=== PATIENT | female | born 1980 | race Caucasian/White ===

== ENCOUNTER 2017-10-22 23:51 | Inpatient (IN) | payer OTHER ==
[2017-10-23] MEDS: SOD CHLORIDE 0.9% 1,000 ML IV ×4 (00:13→23:43)
[2017-10-23] MEDS: ONDANSETRON 4 MG INJ IV (00:15)
[2017-10-23] MEDS: HYDROmorphONE 1 MG/ML SYG IV (00:15)
[2017-10-23] MEDS: AMPICILLIN/SULB 3 GM/NS (PMX) 100 ML IVPB (00:20)
[2017-10-23] MEDS: LORAZEPAM 2 MG INJ IV ×2 (00:21→01:04)
[2017-10-23] MEDS: LIDOCAINE 1%/EPI (MDV) 50 ML INJ INJ (00:30)
[2017-10-23] MEDS: FENTAnyl 50 MCG/ML VIAL IV ×2 (01:05→15:01)
[2017-10-23 05:33] LABS: ADD MAN DIFF? NO
[2017-10-23 05:36] LABS: BASOPHILS % 0.2 % (0.0-2.0); EOSINOPHILS % 0.2 % (0.0-7.0); HEMATOCRIT 37.3 % (37.0-47.0); HEMOGLOBIN 11.9 g/dl (12.0-16.0); LYMPHOCYTES % 14.1 % (15.0-51.0); MEAN CORPUSCULAR HEMOGLOBIN 26.4 pg (29.0-33.0); MEAN CORPUSCULAR HGB CONC 31.9 g/dl (32.0-37.0); MEAN CORPUSCULAR VOLUME 82.9 fl (82.0-101.0); MEAN PLATELET VOLUME 10.4 fl (7.4-10.4); MONOCYTE # 1.4 10^3/ul (0.3-0.9); MONOCYTES % 10.2 % (0.0-11.0); NEUTROPHIL # 10.6 10^3/ul (1.6-7.5); PLATELET COUNT 284 10^3/UL (140-415)
[2017-10-23 05:36] LABS: WHITE BLOOD COUNT 14.1 10^3/ul (4.8-10.8)
[2017-10-23 06:12] LABS: ANION GAP 11 (8-16); BLOOD UREA NITROGEN 9 mg/dl (7-20); CALCIUM 8.2 mg/dl (8.4-10.2); CARBON DIOXIDE 23 mmol/L (21-31); CHLORIDE 107 mmol/L (97-110); GLUCOSE 103 mg/dl (70-220); POTASSIUM 3.8 mmol/L (3.5-5.1); SODIUM 137 mmol/L (135-144)
[2017-10-23] MEDS ORDERED: NACL 0.9% 3 ML SYG IV ×2 (06:30→14:30)
[2017-10-23] MEDS ORDERED: ACETAMINOPHEN 325 MG TAB PO (06:30)
[2017-10-23] MEDS ORDERED: ALBUTEROL/IPRATROPIUM (NEB) 3 ML AMP HHN (06:30)
[2017-10-23] MEDS ORDERED: ONDANSETRON 4 MG INJ IV ×2 (06:30→13:30)
[2017-10-23] MEDS ORDERED: HYDROCODONE/APAP (5/325) TAB PO ×2 (06:30→14:30)
[2017-10-23] MEDS: DEXTROSE 5%-0.45% NACL 1,000 ML IV (07:06)
[2017-10-23] MEDS: VANCOMYCIN 1.75 GM in SOD CHLORIDE 0.9% 500 ML IVPB (08:01)
[2017-10-23] MEDS ORDERED: CEFEPIME 1GM/50 ML (PMX) 50 ML IVPB (09:00)
[2017-10-23] MEDS ORDERED: VANCOMYCIN IV PER PHARMACY XX (09:00)
[2017-10-23] MEDS ORDERED: HEPARIN 5,000 UNIT/0.5 ML VIAL SC (09:00)
[2017-10-23] MEDS: HYDROCODONE/APAP (5/325) TAB PO (10:45)
[2017-10-23] MEDS ORDERED: HYDROmorphONE 1 MG/ML SYG IV (11:00)
[2017-10-23] MEDS ORDERED: SUCCINYLCHOLINE CHLORIDE 100 MG/5 ML SYG IV (13:00)
[2017-10-23] MEDS ORDERED: DEXAMETHASONE 4 MG/ML 1 ML INJ (13:00)
[2017-10-23] MEDS ORDERED: ONDANSETRON 4 MG INJ (13:00)
[2017-10-23] MEDS: POLYMYXIN B 500000 UNIT INJ (13:15)
[2017-10-23] MEDS: BACITRACIN 50000 UNITS INJ (13:15)
[2017-10-23] MEDS ORDERED: ROCURONIUM 50 MG INJ (13:16)
[2017-10-23] MEDS ORDERED: LIDOCAINE 2% (SDV) 5 ML INJ (13:16)
[2017-10-23] MEDS ORDERED: GLYCOPYRROLATE 0.4 MG INJ (13:16)
[2017-10-23] MEDS ORDERED: NEOSTIGMINE 3 MG/3 ML SYRINGE (13:16)
[2017-10-23] MEDS ORDERED: FENTAnyl 50 MCG/ML VIAL (13:16)
[2017-10-23] MEDS ORDERED: PROPOFOL 20 ML (13:16)
[2017-10-23] MEDS ORDERED: MIDAZOLAM 1 MG/ML 2 ML INJ (13:17)
[2017-10-23] MEDS ORDERED: LABETALOL HCL 20MG INJ IV (13:30)
[2017-10-23] MEDS ORDERED: MEPERIDINE 25 MG INJ IV (13:30)
[2017-10-23] MEDS ORDERED: FENTAnyl 50 MCG/ML VIAL IV (13:30)
[2017-10-23] MEDS ORDERED: OXYCODONE/ACETAMINOPHEN (5/325) TAB PO ×2 (13:30)
[2017-10-23] MEDS ORDERED: MIDAZOLAM 1 MG/ML 2 ML INJ IV (13:30)
[2017-10-23] MEDS ORDERED: ATROPINE 1 MG/10 ML SYRINGE IV (13:30)
[2017-10-23] MEDS ORDERED: HYDROmorphONE 1 MG/5 ML IV SYRINGE IV ×2 (13:30)
[2017-10-23] MEDS ORDERED: EPHEDrine SULFATE 50 MG/5 ML SYG IV (13:30)
[2017-10-23] MEDS ORDERED: morphine (1 MG/ML) 10ML SYRINGE IV ×3 (13:30)
[2017-10-23] MEDS ORDERED: DIPHENHYDRAMINE 50 MG INJ IV (13:30)
[2017-10-23] MEDS ORDERED: hydrALAzine 20 MG INJ IV (13:30)
[2017-10-23] MEDS ORDERED: morphine 2 MG INJ IV (14:30)
[2017-10-23] MEDS ORDERED: CEFAZOLIN 1 GM/50 ML (PMX) 50 ML IVPB (14:30)
[2017-10-23] MEDS: HYDROmorphONE 1 MG/5 ML IV SYRINGE IV (15:02)
[2017-10-23] MEDS ORDERED: ACETAMINOPHEN 1000MG/100ML IV 100 ML IVPB ×2 (16:00→17:00)
[2017-10-23] MEDS: VANCOMYCIN 1 GM 250 ML IVPB ×2 (16:59→23:49)
[2017-10-23] MEDS: ACETAMINOPHEN 1000MG/100ML IV 100 ML IVPB ×2 (18:57→23:48)
[2017-10-23] MEDS: AMPICILLIN/SULB 1.5GM/NS (PMX) 50 ML IVPB ×2 (19:31→23:41)
[2017-10-24] MEDS: ACETAMINOPHEN 1000MG/100ML IV 100 ML IVPB ×3 (06:00→18:09)
[2017-10-24] MEDS: AMPICILLIN/SULB 1.5GM/NS (PMX) 50 ML IVPB ×3 (06:01→18:10)
[2017-10-24] MEDS: HYDROmorphONE 2 MG/ML SYG IV ×4 (06:43→21:39)
[2017-10-24 07:44] LABS: ADD MAN DIFF? NO
[2017-10-24 07:55] LABS: ABNORMAL IP MESSAGE 1; BASOPHILS % 0.2 % (0.0-2.0); HEMATOCRIT 34.6 % (37.0-47.0); HEMOGLOBIN 11.2 g/dl (12.0-16.0); LYMPHOCYTES # 1.5 10^3/ul (0.8-2.9); LYMPHOCYTES % 8.3 % (15.0-51.0); MEAN CORPUSCULAR HEMOGLOBIN 26.4 pg (29.0-33.0); MEAN CORPUSCULAR HGB CONC 32.4 g/dl (32.0-37.0); MEAN CORPUSCULAR VOLUME 81.4 fl (82.0-101.0); MONOCYTE # 1.8 10^3/ul (0.3-0.9); MONOCYTES % 9.8 % (0.0-11.0); NEUTROPHIL # 14.4 10^3/ul (1.6-7.5); NEUTROPHILS % 81.1 % (39.0-77.0); PLATELET COUNT 330 10^3/UL (140-415); RED BLOOD COUNT 4.25 10^6/ul (4.20-5.40); RED CELL DISTRIBUTION WIDTH 14.3 % (11.5-14.5)
[2017-10-24 07:55] LABS: WHITE BLOOD COUNT 17.8 10^3/ul (4.8-10.8)
[2017-10-24 08:01] LABS: POSITIVE DIFF @See below
[2017-10-24 08:06] LABS: ALANINE AMINOTRANSFERASE 20 IU/L (13-69); ALBUMIN 3.1 g/dl (3.3-4.9); ALBUMIN/GLOBULIN RATIO 1.06; ALKALINE PHOSPHATASE 60 IU/L (42-121); ANION GAP 9 (8-16); ASPARTATE AMINO TRANSFERASE 32 IU/L (15-46); BILIRUBIN,INDIRECT 0.1 mg/dl (0-1.1); BILIRUBIN,TOTAL 0.1 mg/dl (0.2-1.3); BLOOD UREA NITROGEN 11 mg/dl (7-20); CALCIUM 8.2 mg/dl (8.4-10.2); CARBON DIOXIDE 25 mmol/L (21-31); CHLORIDE 105 mmol/L (97-110); CREATININE 0.72 mg/dl (0.44-1.00); GLUCOSE 119 mg/dl (70-220); MAGNESIUM 1.8 mg/dl (1.7-2.5); PHOSPHORUS 3.3 mg/dl (2.5-4.9); SODIUM 135 mmol/L (135-144)
[2017-10-24] MEDS: SOD CHLORIDE 0.9% 1,000 ML IV ×3 (09:19→23:36)
[2017-10-24] MEDS: VANCOMYCIN 1 GM 250 ML IVPB (09:19)
[2017-10-24] MEDS: VANCOMYCIN 1.5 GM in SOD CHLORIDE 0.9% 250 ML IVPB ×2 (15:29→23:07)
[2017-10-25] MEDS: ACETAMINOPHEN 1000MG/100ML IV 100 ML IVPB ×2 (00:14→05:20)
[2017-10-25] MEDS: AMPICILLIN/SULB 1.5GM/NS (PMX) 50 ML IVPB ×2 (00:35→05:56)
[2017-10-25] MEDS: HYDROmorphONE 2 MG/ML SYG IV ×2 (02:09→06:41)
[2017-10-25] MEDS: VANCOMYCIN 1.5 GM in SOD CHLORIDE 0.9% 250 ML IVPB (06:34)
[2017-10-25] MEDS ORDERED: OXYCODONE/ACETAMINOPHEN (5/325) TAB PO (10:00)
== END 2017-10-25 13:55 | disposition home or self-care (01) | DRG 501 ==
LOC: E/R 23:51 → 2NE 10-23 05:19
PROVIDERS: Internal Medicine
PROC: 0LQ30ZZ Repair Right Upper Arm Tendon, Open Approach (ICD-10-PCS; principal; 2017-10-23 13:15)
PROC: 0KQ70ZZ Repair Right Upper Arm Muscle, Open Approach (ICD-10-PCS; 2017-10-23 13:15)
PROC: 0HQNXZZ Repair Left Foot Skin, External Approach (ICD-10-PCS; 2017-10-23 13:15)
PROC: 0HQBXZZ Repair Right Upper Arm Skin, External Approach (ICD-10-PCS; 2017-10-23 13:15)
DX: S46.321A Laceration of muscle, fascia and tendon of triceps, right arm, initial encounter (principal); D62 Acute posthemorrhagic anemia; S91.012A Laceration without foreign body, left ankle, initial encounter; S51.811A Laceration without foreign body of right forearm, initial encounter; S41.111A Laceration without foreign body of right upper arm, initial encounter; W54.0XXA Bitten by dog, initial encounter; D72.829 Elevated white blood cell count, unspecified; F17.200 Nicotine dependence, unspecified, uncomplicated; I10 Essential (primary) hypertension
CPT/HCPCS: 73060-RT; 73610; 80048; 80053; 80202; 83735; 84100; 84703; 85025; 87070; 96365; 96375; 96376; 99285-25; G0378

== ENCOUNTER 2017-11-07 23:45 | Emergency (ER) | payer OTHER ==
[2017-11-08] MEDS: LIDOCAINE 4% CR TOP (01:27)
[2017-11-08] MEDS: CLINDAMYCIN 300 MG INJ IM (01:29)
[2017-11-08] MEDS ORDERED: CLINDAMYCIN 600 MG INJ IM (01:30)
== END 2017-11-08 02:25 | disposition home or self-care (01) ==
LOC: FTE 23:45
DX: T81.4XXA Infection following a procedure, initial encounter (principal); F17.210 Nicotine dependence, cigarettes, uncomplicated; Y81.3 Surgical instruments, materials and general- and plastic-surgery devices (including sutures) associated with adverse incidents
CPT/HCPCS: 96372; 99284-25